=== PATIENT | male | born 1965 | race Asian ===

== ENCOUNTER 2017-03-27 14:59 | Emergency (ER) | payer BC ==
[2017-03-27 15:13] VITALS: BP 131/87
--- NOTE | 2017-03-27 16:24 | XRAY Preliminary Report ---
Exam: XR Knee 4 View LT IMPRESSION: Normal left knee radiography. [facility] SITE ID: [id number]
--- NOTE | 2017-03-27 16:26 | XRAY Report ---
EXAM: LEFT KNEE RADIOGRAPHY EXAM DATE: 03/27/2017 04:08 PM. CLINICAL HISTORY: Anterior left knee pain after twisting injury. COMPARISON: None. TECHNIQUE: 4 views. FINDINGS: Bones: Normal. No fractures or bone lesions. Joints: Normal. No effusion. No subluxations. Soft Tissues: Normal. No soft tissue swelling. IMPRESSION: Normal left knee radiography. [facility] Referring Provider Line: [phone] SITE ID: [id number]
--- NOTE | 2017-03-27 17:21 | ED Physician Documentation ---
History of Present Illness - Stated complaint Stated Complaint: GLF/ L KNEE PX - Chief complaint Chief Complaint: Ext Problem - Additonal information Additional information: hx from pt 51 male fell onto knee bowling pain to ant medial knee no lac numbness or weakness Review of Systems Musculoskeletal: reports: Joint pain PD PAST MEDICAL HISTORY - Past Medical History Past Medical History: Yes Cardiovascular: Hypertension - Past Surgical History Past Surgical History: Yes General: Cholecystectomy HEENT: Tonsil/Adenoidectomy - Present Medications Home Medications: Ambulatory Orders Medication Instructions Recorded Confirmed Atenolol [Tenormin] 50 mg PO BID 12/04/13 07/26/16 Losartan [Cozaar] 0 mg PO DAILY 12/04/13 07/26/16 - Allergies Allergies/Adverse Reactions: Allergies Allergy/AdvReac Type Severity Reaction Status Date / Time No Known Drug Allergies Allergy Verified 03/27/17 15:12 - Social History Does the pt smoke?: No Smoking Status: Never smoker Does the pt drink ETOH?: No Does the pt have substance abuse?: No - Immunizations Immunizations are current?: Yes - POLST Patient has POLST: No PD ED PE NORMAL - Vitals Vital signs reviewed: Yes - Extremities Extremities: Other (no edema, TTP medial anterior jt line, no ACL LCL MCL laxity , no pop catch with valerio, limited flexion 2/2 pain, MSV intact) Results - Vitals Vitals: Vital Signs - 24 hr 03/27/17 15:08 Temperature 37.0 C Heart Rate 58 L Respiratory 18 Rate Blood Pressure 131/87 H O2 Saturation 99 Oxygen O2 Source Room air - Rads (name of study) knee Radiology: See rad report (neg) Departure - Departure Disposition: 01 Home, Self Care Clinical Impression: Knee contusion Qualifiers: Encounter type: initial encounter Laterality: right Qualified Code(s): S80.01XA - Contusion of right knee, initial encounter Condition: Good Instructions: ED Sprain Knee Follow-Up: Noah Landaverde MD [Primary Care Provider] - Comments: The xray is fine - no fracture The pain is likely due to a knee sprain or contusion Wear the DANIAL wrap and apply ice and use the crutches to get the weight off the knee while it heals. If still painful in 1-2 weeks see your PMD for a recheck Also please follow up with your PMD to recheck your blood pressure - it was high today
[2017-03-27] MEDS ORDERED: IBUPROFEN 400 MG TABLET PO STA (17:25)
[2017-03-27] MEDS ORDERED: ACETAMINOPHEN 325 MG TABLET PO STA (17:25)
[2017-03-27] MEDS ORDERED: IBUPROFEN 400 MG TABLET PO ONE (17:28)
[2017-03-27] MEDS ORDERED: ACETAMINOPHEN 325 MG TABLET PO ONE (17:29)
== END 2017-03-27 17:33 | disposition home or self-care (01) ==
LOC: ED 14:59
DX: S80.02XA Contusion of left knee, initial encounter (principal); W18.30XA Fall on same level, unspecified, initial encounter; Y93.54 Activity, bowling; Y92.838 Other recreation area as the place of occurrence of the external cause; Y99.8 Other external cause status; I10 Essential (primary) hypertension; R03.0 Elevated blood-pressure reading, without diagnosis of hypertension
CPT/HCPCS: 73564; 99282; 99283; A9270

== ENCOUNTER 2017-07-05 14:04 | Outpatient (CLI) | payer BC ==
--- NOTE | 2017-07-05 15:31 | XRAY Report ---
FRONTAL CHEST: 07/05/2017 CLINICAL INDICATION: Nonspecific skin reaction to Gamma Interferon. COMPARISON: 07/26/2016. FINDINGS: Frontal view of the chest demonstrates a normal cardiac silhouette. The lungs are clear. N o effusion or pneumothorax is present. IMPRESSION: NORMAL CHEST, UNCHANGED. NO EVIDENCE OF ACTIVE TUBERCULOSIS. JOB #: [id number] EXT JOB #:[id number]
== END 2017-07-05 14:05 | disposition home or self-care (01) ==
LOC: DI 14:04
PROVIDERS: ATTEND Internal Medicine Infectious Disease
DX: R76.12 Nonspecific reaction to cell mediated immunity measurement of gamma interferon antigen response without active tuberculosis (principal)
CPT/HCPCS: 71010

== ENCOUNTER 2017-07-31 12:02 | Outpatient (CLI) | payer BC ==
--- NOTE | 2017-07-31 13:44 | MRI Report ---
EXAM: LEFT KNEE MRI WITHOUT CONTRAST EXAM DATE: 07/31/2017 01:06 PM. CLINICAL HISTORY: Fell while bowling on left knee. Lateral and posterior pain. COMPARISON: X-ray 03/27/2017. TECHNIQUE: Multiplanar, multisequence T1-weighted and fluid-sensitive sequences of the knee without c ontrast. Other: None. FINDINGS: Bones: No fractures or subluxations. No marrow edema. No bone lesions. Articular Cartilage: Grade 2 chondromalacia medial compartment. Grade 1 chondromalacia patella. Medial Meniscus: The medial meniscus is intact. Lateral Meniscus: The lateral meniscus is intact. Cruciate Ligaments: T2 hyperintensity and indistinct appearance of the PCL with mild laxity. ACL demo nstrates mild increased intrasubstance signal but is intact with no laxity. Collateral Ligaments: The medial collateral and lateral collateral ligamentous structures are intact. Tendons: The quadriceps, patellar, semimembranosus, and popliteus tendons are unremarkable. Musculature: No edema or fatty atrophy. Other: No effusion. No popliteal cyst. No loose bodies. The medial and lateral retinacula are intact . The subcutaneous tissues and fat pads are unremarkable. IMPRESSION: 1. High-grade partial PCL tear with mild laxity. 2. Partial-thickness ACL sprain but no laxity. [facility] Referring Provider Line: [phone] SITE ID: [id number]
== END 2017-07-31 12:03 | disposition home or self-care (01) ==
LOC: DI 12:02
PROVIDERS: ATTEND Family Medicine
DX: S83.522A Sprain of posterior cruciate ligament of left knee, initial encounter (principal); S83.512A Sprain of anterior cruciate ligament of left knee, initial encounter

== ENCOUNTER 2017-08-06 10:08 | Outpatient (CLI) | payer BC | END 2017-08-06 10:09 | disposition home or self-care (01) | LOC: LAB.WCP 10:08 | PROVIDERS: ATTEND Family Medicine | DX: Z12.5 Encounter for screening for malignant neoplasm of prostate (principal) | CPT/HCPCS: 36415; 84153 ==

== ENCOUNTER 2018-03-22 10:42 | Day surgery (SDC) | payer BC ==
[2018-03-22] MEDS ORDERED: LIDO GARGLE 30 ML BOTTLE ONE (11:06)
[2018-03-22] MEDS ORDERED: LACTATED RINGERS 1,000 ML IV ONE ×2 (11:30→13:24)
[2018-03-22] MEDS ORDERED: fentaNYL 250 MCG/5 ML VIAL IVP ONE (12:51)
[2018-03-22] MEDS ORDERED: MIDAZOLAM 2 MG/2 ML VIAL IVP ONE (12:51)
[2018-03-22] MEDS ORDERED: LIDO GARGLE 30 ML BOTTLE PO ONE (12:58)
[2018-03-22 14:18] VITALS: BP 100/61
== END 2018-03-22 10:43 | disposition home or self-care (01) ==
LOC: SDS 10:42
PROVIDERS: ATTEND Surgery
PROC: 0DBN8ZX Excision of Sigmoid Colon, Via Natural or Artificial Opening Endoscopic, Diagnostic (ICD-10-PCS; principal; 2018-03-22 12:00)
PROC: 0DB58ZX Excision of Esophagus, Via Natural or Artificial Opening Endoscopic, Diagnostic (ICD-10-PCS; 2018-03-22 12:00)
DX: Z12.11 Encounter for screening for malignant neoplasm of colon (principal); R10.13 Epigastric pain; K29.70 Gastritis, unspecified, without bleeding; K44.9 Diaphragmatic hernia without obstruction or gangrene; K63.5 Polyp of colon; K21.9 Gastro-esophageal reflux disease without esophagitis; J45.909 Unspecified asthma, uncomplicated; Z87.891 Personal history of nicotine dependence
CPT/HCPCS: 43239; 45380; A9270; J7120; 88305

== ENCOUNTER 2018-07-22 15:07 | Outpatient (CLI) | payer OTHER, BC ==
--- NOTE | 2018-07-23 14:07 | MRI Report ---
Reason: SPRAIN OF ROTATOR CUFF CAPSULE SUBSEQUENT ENC Procedure Date: 07/22/2018 Accession Number: [id number] / [id number] Procedure: MRI - Shoulder LT W/O CPT Code: FULL RESULT: EXAM: LEFT SHOULDER MRI WITHOUT CONTRAST EXAM DATE: 07/22/2018 04:16 PM. CLINICAL HISTORY: Sprain of rotator cuff capsule subsequent ENC. COMPARISON: SHOULDER 3 VIEW LT 05/02/2018 9:45 AM. TECHNIQUE: Multiplanar, multisequence T1-weighted and fluid-sensitive sequences of the shoulder without contrast. Other: None. FINDINGS: Acromioclavicular Region: The acromion is type II. The acromioclavicular joint is unremarkable. The coracoacromial and coracoclavicular ligaments are intact. No subacromial/subdeltoid bursal fluid. Glenohumeral Region: No subluxation. No effusion or loose bodies. Mild cartilage thinning. The glenohumeral ligaments and joint capsule are unremarkable. Bone Marrow: No fracture, marrow edema or bone lesions. Labrum: The labrum is unremarkable on this nonarthrographic study. Musculature/Rotator Cuff: Minimal T2 hyperintensity distal infraspinatus, tendinosis. The supraspinatus, subscapularis and teres minor appear intact and within normal limits. No edema or fatty atrophy. Biceps Tendon: The long head of the biceps tendon and biceps stacy are intact. Other: The subcutaneous tissues are unremarkable. IMPRESSION: 1. Mild tendinosis distal infraspinatus. 2. No significant evidence of rotator cuff tear. Labrum and biceps tendon unremarkable on noncontrast imaging. [facility]
== END 2018-07-22 15:08 | disposition home or self-care (01) ==
LOC: DI 15:07
PROVIDERS: ATTEND Family Medicine
DX: M75.92 Shoulder lesion, unspecified, left shoulder (principal)

== ENCOUNTER 2018-08-08 09:35 | Outpatient (CLI) | payer BC, OTHER ==
[2018-08-08 12:37] LABS: BASOPHILS # (AUTO) 0.1 10^3/uL (0.0-0.1); BASOPHILS % (AUTO) 1.3 %; EOSINOPHILS # (AUTO) 0.7 10^3/uL (0.0-0.7); EOSINOPHILS % (AUTO) 8.5 %; HGB - HEMOGLOBIN 15.4 g/dL (14.0-18.0); LYMPHOCYTES # (AUTO) 2.9 10^3/uL (1.5-3.5); LYMPHOCYTES % (AUTO) 33.4 %; MEAN CORPUSCULAR HGB CONC 34.5 g/dL (32.0-36.0); MEAN CORPUSCULAR VOLUME 89.8 fL (80.0-94.0); MEAN PLATELET VOLUME 9.1 fL (7.4-11.4); MONOCYTES # (AUTO) 0.7 10^3/uL (0.0-1.0); MONOCYTES % (AUTO) 7.9 %; NEUTROPHILS # (AUTO) 4.2 10^3/uL (1.5-6.6); NEUTROPHILS % (AUTO) 48.9 %; PLT - PLATELET COUNT 237 10^3/uL (130-450); RED BLOOD COUNT 4.98 10^6/uL (4.70-6.10); RED CELL DISTRIBUTION WIDTH 12.8 % (12.0-15.0); WHITE BLOOD COUNT 8.6 x10^3/uL (4.8-10.8)
[2018-08-08 12:39] LABS: HB2 TOTAL 17.1 g/dL; HEMOGLOBIN A1C 0.65 g/dL; HEMOGLOBIN A1C % 5.6 % (4.6-6.2)
[2018-08-08 12:46] LABS: ALBUMIN 4.2 g/dL (3.2-5.5); ALBUMIN/GLOBULIN RATIO 1.2 (1.0-2.2); ALKALINE PHOSPHATASE 87 IU/L (42-121); ALT ALANINE AMINOTRANSFERASE 48 IU/L (10-60); AST ASPARTATE AMINOTRANSFERASE 30 IU/L (10-42); BILIRUBIN,TOTAL 0.6 mg/dL (0.2-1.0); BUN - BLOOD UREA NITROGEN 19 mg/dL (6-20); CALCIUM 9.1 mg/dL (8.5-10.3); CARBON DIOXIDE - CO2 24 mmol/L (21-32); CHLORIDE 107 mmol/L (101-111); CHOL/HDL RATIO 6.5 (<5.0); CHOLESTEROL 175 mg/dL; CREATININE 0.9 mg/dL (0.6-1.2); GFR - MDRD 88 (>89); GLUCOSE 123 mg/dL (70-100); HDL CHOLESTEROL 27 mg/dL; LDL CHOLESTEROL,CALCULATED 95 mg/dL; LDL/HDL RATIO 3.5 (<3.6); SODIUM 141 mmol/L (135-145); TOTAL PROTEIN 7.6 g/dL (6.7-8.2); VLDL CHOLESTEROL 53 mg/dL
== END 2018-08-08 09:36 | disposition home or self-care (01) ==
LOC: LAB.WCP 09:35
PROVIDERS: ATTEND Family Medicine
DX: I10 Essential (primary) hypertension (principal); E74.39 Other disorders of intestinal carbohydrate absorption; Z12.5 Encounter for screening for malignant neoplasm of prostate
CPT/HCPCS: 36415; 80053; 80061; 83036; 83721; 84153; 85025

== ENCOUNTER 2019-02-12 17:10 | Emergency (ER) | payer BC ==
--- NOTE | 2019-02-12 19:19 | XRAY Report ---
Reason: cough Procedure Date: 02/12/2019 Accession Number: [id number] / [id number] Procedure: XR - Chest 2 View X-Ray CPT Code: 58245 FULL RESULT: EXAM: CHEST RADIOGRAPHY EXAM DATE: 02/12/2019 06:55 PM. CLINICAL HISTORY: Cough. COMPARISON: CHEST 1 VIEW 07/05/2017 2:30 PM. TECHNIQUE: 2 views. FINDINGS: Lungs/Pleura: No focal opacities evident. No pleural effusion. No pneumothorax. Normal volumes. Mediastinum: Heart size is normal. Aorta is mildly tortuous. Other: Degenerative changes of the thoracic spine. Status post cholecystectomy. IMPRESSION: 1. No acute disease in the chest. [facility]
[2019-02-12] MEDS ORDERED: AMOX/CLAV 875 MG/125 MG TABLET PO STA (19:33)
[2019-02-12] MEDS ORDERED: predniSONE 20 MG TABLET PO STA (19:33)
[2019-02-12] MEDS ORDERED: HYDROcod/ACET 5/325 Prepack 4 PO STA (19:33)
--- NOTE | 2019-02-12 19:36 | ED Physician Documentation ---
History of Present Illness - Stated complaint Stated Complaint: DAIGLE,FEVER,COUGH - Chief complaint Chief Complaint: General - History obtained from History obtained from: Patient - History of Present Illness Timing: Other (53-year-old gentleman has been sick for about a week with frontal headache, sinus pain and drainage, and a cough productive of white sputum. Mild shortness of breath. No fevers or chills. He is tried Mucinex and Tylenol without relief. No recent travel.) Review of Systems Constitutional: reports: Fatigue. denies: Fever, Chills Ears: reports: Ear pain Nose: reports: Rhinorrhea / runny nose, Congestion, Sinus pressure / pain Throat: denies: Sore throat Respiratory: reports: Cough GI: denies: Vomiting, Diarrhea PD PAST MEDICAL HISTORY - Past Medical History Cardiovascular: Hypertension Respiratory: Asthma, Sleep apnea, CPAP use Endocrine/Autoimmune: None GI: GERD, Colon polyps : Kidney stones HEENT: Chronic vision loss, Glaucoma Psych: None Musculoskeletal: None Derm: None - Past Surgical History Past Surgical History: Yes General: Cholecystectomy, Colonoscopy HEENT: Tonsil/Adenoidectomy, Other - Present Medications Home Medications: Ambulatory Orders Medication Instructions Recorded Confirmed Atenolol [Tenormin] 50 mg PO BID 12/04/13 07/26/16 Losartan [Cozaar] 0 mg PO BID 12/04/13 07/26/16 amLODIPine [Norvasc] 1 DAILY 03/22/18 Amox/Clav 875/125 [Augmentin] 1 each PO Q12H #20 tablet 02/12/19 Hydrocodone/Acetaminophen 1 - 2 each PO Q6H PRN #7 tablet 02/12/19 [Hydrocodon-Acetaminophen 5-325] Mometasone Furoate [Nasonex] 1 spray NS BID #1 spray.pump 02/12/19 predniSONE [Deltasone] 60 mg PO DAILY 5 Days tablet 02/12/19 - Allergies Allergies/Adverse Reactions: Allergies Allergy/AdvReac Type Severity Reaction Status Date / Time No Known Drug Allergies Allergy Verified 03/27/17 15:12 - Social History Does the pt smoke?: No Smoking Status: Never smoker Does the pt drink ETOH?: No Does the pt have substance abuse?: No - Immunizations Immunizations are current?: Yes - POLST Patient has POLST: No PD ED PE NORMAL - Vitals Vital signs reviewed: Yes - General General: Alert and oriented X 3, No acute distress - HEENT HEENT: Ears normal (TMs are normal), Pharynx benign, Other (Tender over the maxillary sinuses bilaterally) - Neck Neck: Supple, no meningeal sign, No bony TTP - Cardiac Cardiac: RRR, No murmur - Respiratory Respiratory: No respiratory distress, Clear bilaterally - Abdomen Abdomen: Non tender - Neuro Neuro: Alert and oriented X 3, Normal speech Results - Vitals Vitals: Vital Signs - 24 hr 02/12/19 17:30 Temperature 37.2 C Heart Rate 72 Respiratory 14 Rate Blood Pressure 125/79 O2 Saturation 98 Oxygen O2 Source Room air - Rads (name of study) 2v chest Radiology: EMP read contemporaneously (normal) Departure - Departure Disposition: Home, Self Care Clinical Impression: Sinusitis Qualifiers: Sinusitis location: maxillary Chronicity: acute Recurrence: non-recurrent Qualified Code(s): J01.00 - Acute maxillary sinusitis, unspecified Condition: Good Record reviewed to determine appropriate education?: Yes Instructions: ED Sinusitis Abx Tx Prescriptions: Amox/Clav 875/125 [Augmentin] 1 each PO Q12H #20 tablet Hydrocodone/Acetaminophen [Hydrocodon-Acetaminophen 5-325] 1 - 2 each PO Q6H PRN #7 tablet PRN Reason: pain Mometasone Furoate [Nasonex] 1 spray NS BID #1 spray.pump predniSONE [Deltasone] 60 mg PO DAILY 5 Days tablet Comments: Call your doctor to arrange a follow-up appointment, make the next available appointment. In the interim, return anytime if worse or if new symptoms develop. Forms: Activity restrictions
[2019-02-12 19:53] VITALS: BP 140/84
== END 2019-02-12 20:16 | disposition home or self-care (01) ==
LOC: ED 17:10
DX: J01.00 Acute maxillary sinusitis, unspecified (principal)
CPT/HCPCS: 71046; 99283; A9270; J7512

== ENCOUNTER 2019-03-13 09:29 | Outpatient (CLI) | payer BC ==
[2019-03-13 12:44] LABS: BASOPHILS # (AUTO) 0.1 10^3/uL (0.0-0.1); BASOPHILS % (AUTO) 1.1 %; EOSINOPHILS # (AUTO) 0.5 10^3/uL (0.0-0.7); EOSINOPHILS % (AUTO) 7.5 %; LYMPHOCYTES # (AUTO) 2.5 10^3/uL (1.5-3.5); LYMPHOCYTES % (AUTO) 35.8 %; MEAN CORPUSCULAR HEMOGLOBIN 30.4 pg (27.0-31.0); MEAN CORPUSCULAR VOLUME 89.2 fL (80.0-94.0); MEAN PLATELET VOLUME 8.9 fL (7.4-11.4); MONOCYTES # (AUTO) 0.6 10^3/uL (0.0-1.0); MONOCYTES % (AUTO) 7.9 %; NEUTROPHILS # (AUTO) 3.4 10^3/uL (1.5-6.6); NEUTROPHILS % (AUTO) 47.7 %; PLT - PLATELET COUNT 228 10^3/uL (130-450); RED BLOOD COUNT 4.94 10^6/uL (4.70-6.10); RED CELL DISTRIBUTION WIDTH 12.5 % (12.0-15.0); WHITE BLOOD COUNT 7.1 x10^3/uL (4.8-10.8)
[2019-03-13 12:57] LABS: HEMOGLOBIN A1C 0.65 g/dL; HEMOGLOBIN A1C % 5.9 % (4.6-6.2)
[2019-03-13 13:09] LABS: ALBUMIN/GLOBULIN RATIO 1.2 (1.0-2.2); ALKALINE PHOSPHATASE 68 IU/L (42-121); ALT ALANINE AMINOTRANSFERASE 30 IU/L (10-60); AST ASPARTATE AMINOTRANSFERASE 23 IU/L (10-42); BILIRUBIN,TOTAL 0.5 mg/dL (0.2-1.0); BUN - BLOOD UREA NITROGEN 17 mg/dL (6-20); CARBON DIOXIDE - CO2 23 mmol/L (21-32); CHLORIDE 107 mmol/L (101-111); CHOL/HDL RATIO 5.8 (<5.0); CHOLESTEROL 150 mg/dL; CREATININE 0.9 mg/dL (0.6-1.2); GFR - MDRD 88 (>89); GLUCOSE 111 mg/dL (70-100); HDL CHOLESTEROL 26 mg/dL; LDL CHOLESTEROL,CALCULATED 86 mg/dL; LDL/HDL RATIO 3.3 (<3.6); SODIUM 139 mmol/L (135-145); TOTAL PROTEIN 7.4 g/dL (6.7-8.2); VLDL CHOLESTEROL 38 mg/dL
== END 2019-03-13 09:30 | disposition home or self-care (01) ==
LOC: LAB.WCP 09:29
PROVIDERS: ATTEND Family Medicine
DX: I10 Essential (primary) hypertension (principal); E74.39 Other disorders of intestinal carbohydrate absorption
CPT/HCPCS: 36415; 80053; 80061; 83036; 83721; 85025

== ENCOUNTER 2019-03-18 08:02 | Outpatient (CLI) | payer BC | END 2019-03-18 08:03 | disposition home or self-care (01) | LOC: DI 08:02 | PROVIDERS: ATTEND Family Medicine | DX: R01.1 Cardiac murmur, unspecified (principal); I51.7 Cardiomegaly | CPT/HCPCS: 93306 ==

== ENCOUNTER 2019-04-11 07:31 | Day surgery (SDC) | payer BC ==
[2019-04-11] MEDS ORDERED: LACTATED RINGERS 1,000 ML IV ONE (07:51)
--- NOTE | 2019-04-11 08:01 | ANESTHESIA ---
Pre-Anesthesia VS, & Labs - Diagnosis Mass right thumb - Procedure Excise right thumb mass Vital Signs: Temp Pulse Resp BP Pulse Ox 36.8 C 51 L 15 128/90 H 98 04/11/19 07:35 04/11/19 07:35 04/11/19 07:35 04/11/19 07:35 04/11/19 07:35 Height 5 ft 6 in Weight (kg) 83.6 kg Body Mass Index 30.2 - NPO >8 hours Home Medications and Allergies Home Medications: Ambulatory Orders Acetaminophen [Tylenol] 650 mg PO Q6H PRN 04/06/19 Albuterol Sulf [Ventolin Hfa Inhaler] 2 puffs INH Q4HR PRN 04/06/19 Cetirizine [ZyrTEC] 10 mg PO DAILY 04/06/19 Fluticasone Propionate [Flovent Hfa] 2 inh IH BID 04/06/19 Fluticasone [Flonase] 1 sprays SHAHIDA BID 04/06/19 Atenolol [Tenormin] 50 mg PO BID 12/04/13 Losartan [Cozaar] 50 mg PO BID 12/04/13 amLODIPine [Norvasc] 5 mg PO DAILY 03/22/18 Acetaminophen [Tylenol] 650 mg PO Q6H PRN 04/06/19 Albuterol Sulf [Ventolin Hfa Inhaler] 2 puffs INH Q4HR PRN 04/06/19 Cetirizine [ZyrTEC] 10 mg PO DAILY 04/06/19 Fluticasone Propionate [Flovent Hfa] 2 inh IH BID 04/06/19 Fluticasone [Flonase] 1 sprays SHAHIDA BID 04/06/19 Allergies/Adverse Reactions: Allergies Allergy/AdvReac Type Severity Reaction Status Date / Time DANIAL Inhibitors AdvReac cough Verified 04/06/19 10:55 Anes History & Medical History - Anesthetic History Anesthesia Complications: reports: No previous complications Family history of Anesthesia Complications: Denies Family history of Malignant Hyperthermia: Denies - Medical History Cardiovascular: reports: Hypertension, Murmur Pulmonary: reports: Asthma, Sleep apnea Gastrointestinal: reports: GERD Urinary: reports: Kidney stones Neuro: reports: None Musculoskeletal: reports: None Endocrine/Autoimmune: reports: None Blood Disorders: reports: None Skin: reports: None Smoking Status: Never smoker Psychosocial: reports: No issues indicated - Surgical History General: Cholecystectomy, Colonoscopy Eyes Ears Nose Throat (EENT): Tonsil/Adenoidectomy, Other Exam General: Alert, Oriented x3 Dental: Dentures full Upper Mouth Openin Fingerbreadth Neck Mobility: Normal Mallampati classification: II Thyromental Distance: greater than 6 cm Respiratory: Lungs clear Cardiovascular: Regular rate Neurological: Normal speech Mental/Cognitive Status: Alert/Oriented X3 Cognitive Status: Within normal limits Plan Anesthesia Type: MAC Consent for Procedure(s) Verified and Reviewed: Yes Code Status: Attempt Resuscitation ASA classification: 2-Mild systemic disease Is this case an emergency?: No
[2019-04-11] MEDS ORDERED: BUPIVACAINE 0.5% PF 10 ML VIAL ONE (08:18)
[2019-04-11] MEDS ORDERED: LIDOCAINE-MPF 2% 5 ML VIAL IM ONE (08:30)
[2019-04-11] MEDS ORDERED: PROPOFOL 200 MG/20 ML VIAL IVP ONE (08:30)
[2019-04-11] MEDS ORDERED: MIDAZOLAM 2 MG/2 ML VIAL IVP ONE (08:30)
[2019-04-11] MEDS ORDERED: fentaNYL 100 MCG/2 ML VIAL IVP ONE (08:30)
[2019-04-11] MEDS ORDERED: BUPIVACAINE 0.25% PF 30 ML VIAL SUBQ ONE ×2 (08:36)
[2019-04-11] MEDS ORDERED: HYDROcod/ACETAM 5/325 MG TABLET PO PRN (08:59)
[2019-04-11 09:51] VITALS: BP 128/90
--- NOTE | 2019-04-11 18:12 | OPERATIVE REPORT ---
DATE OF SERVICE: 04/11/2019 Physician: Sylvia Zavala MD PREOPERATIVE DIAGNOSIS: Ganglion cyst, right dorsal thumb. POSTOPERATIVE DIAGNOSIS: Ganglion cyst, right dorsal thumb. PROCEDURE PERFORMED: Excision of right dorsal thumb ganglion cyst. SURGEON: Sylvia Zavala MD ANESTHESIA: Local with conscious sedation by Carloz Luis. INDICATIONS FOR SURGERY: Patient is a 53-year-old male who has an intermittent formation of a gangli on on the dorsal radial aspect of the thumb at the IP joint level. This cystic lesion has become bot hersome and he would like it excised. He does not have any aggressive arthritis changes on x-ray. DESCRIPTION OF OPERATIVE PROCEDURE: Patient was taken to the operating room. He was given conscious sedation and IV infiltration, including a block in and around the tissues in the thumb. Patient's l imb was exsanguinated and a Tourni-Cot device was used at the base of the thumb. His lesion was appr oached through a slightly oblique incision across the dorsum approximately one-half inch in length an d extended slightly to allow mobilization of the ganglion down into the joint itself, and excision of the ganglion. This was taken in total and the surrounding tissues were inspected, and there was no ganglion or lining tissue left. Cautery was used to control small bleeders. Closure was with interr upted 4-0 nylon in the skin, after which a sterile thumb dressing was applied. Patient was taken to the recovery room in stable condition. ESTIMATED BLOOD LOSS: Minimal. COMPLICATIONS: None. COUNTS: Sponge and needle counts correct. TD: 04/11/2019 15:31
== END 2019-04-11 07:32 | disposition home or self-care (01) ==
LOC: SDS 07:31
PROVIDERS: ATTEND Orthopaedic Surgery
PROC: 0RBW0ZZ Excision of Right Finger Phalangeal Joint, Open Approach (ICD-10-PCS; principal; 2019-04-11 08:30)
DX: M67.441 Ganglion, right hand (principal); I10 Essential (primary) hypertension; G47.30 Sleep apnea, unspecified; J45.909 Unspecified asthma, uncomplicated; Z79.51 Long term (current) use of inhaled steroids; Z79.899 Other long term (current) drug therapy
CPT/HCPCS: 26160; J7120

== ENCOUNTER 2020-01-26 18:41 | Outpatient (CLI) | payer BC ==
[2020-01-26 12:15] LABS: ALBUMIN 4.1 g/dL (3.2-5.5); ALBUMIN/GLOBULIN RATIO 1.2 (1.0-2.2); ALKALINE PHOSPHATASE 66 IU/L (42-121); ALT ALANINE AMINOTRANSFERASE 36 IU/L (10-60); AST ASPARTATE AMINOTRANSFERASE 25 IU/L (10-42); BILIRUBIN,TOTAL 0.8 mg/dL (0.2-1.0); BUN - BLOOD UREA NITROGEN 15 mg/dL (6-20); CARBON DIOXIDE - CO2 25 mmol/L (21-32); CHLORIDE 106 mmol/L (101-111); CHOLESTEROL 167 mg/dL; CREATININE 0.9 mg/dL (0.6-1.2); GLUCOSE 112 mg/dL (70-100); HDL CHOLESTEROL 28 mg/dL; LDL CHOLESTEROL,CALCULATED 94 mg/dL; LDL/HDL RATIO 3.4 (<3.6); SODIUM 139 mmol/L (135-145); TOTAL PROTEIN 7.6 g/dL (6.7-8.2); VLDL CHOLESTEROL 45 mg/dL
[2020-01-26 12:17] LABS: HB2 TOTAL 15.9 g/dL; HEMOGLOBIN A1C 0.64 g/dL; HEMOGLOBIN A1C % 5.8 % (4.6-6.2)
[2020-01-26 12:20] LABS: BASOPHILS # (AUTO) 0.1 10^3/uL (0.0-0.1); BASOPHILS % (AUTO) 0.9 %; EOSINOPHILS # (AUTO) 0.6 10^3/uL (0.0-0.7); EOSINOPHILS % (AUTO) 8.9 %; HGB - HEMOGLOBIN 15.7 g/dL (14.0-18.0); LYMPHOCYTES # (AUTO) 2.8 10^3/uL (1.5-3.5); LYMPHOCYTES % (AUTO) 40.3 %; MEAN CORPUSCULAR HGB CONC 33.9 g/dL (32.0-36.0); MEAN CORPUSCULAR VOLUME 91.5 fL (80.0-94.0); MEAN PLATELET VOLUME 10.8 fL (7.4-11.4); MONOCYTES # (AUTO) 0.5 10^3/uL (0.0-1.0); MONOCYTES % (AUTO) 7.6 %; NEUTROPHILS # (AUTO) 2.9 10^3/uL (1.5-6.6); NEUTROPHILS % (AUTO) 41.7 %; PLT - PLATELET COUNT 253 10^3/uL (130-450); RED BLOOD COUNT 5.06 10^6/uL (4.70-6.10); RED CELL DISTRIBUTION WIDTH 12.2 % (12.0-15.0)
[2020-01-27 14:50] LABS: HEPATITIS C ANTIBODY NON-REACTIVE (NON-REACTIVE)
== END 2020-01-26 23:59 | disposition home or self-care (01) ==
LOC: LAB.WCP 18:41
PROVIDERS: ATTEND Family Medicine
DX: I10 Essential (primary) hypertension (principal); Z12.5 Encounter for screening for malignant neoplasm of prostate; E74.39 Other disorders of intestinal carbohydrate absorption
CPT/HCPCS: 36415; 80053; 80061; 83036; 83721; 84153; 85025; 86803

== ENCOUNTER 2021-03-17 08:00 | Outpatient (CLI) | payer BC ==
[2021-03-17 12:27] LABS: BASOPHILS # (AUTO) 0.1 10^3/uL (0.0-0.1); BASOPHILS % (AUTO) 1.1 %; EOSINOPHILS # (AUTO) 0.7 10^3/uL (0.0-0.7); EOSINOPHILS % (AUTO) 8.5 %; HCT - HEMATOCRIT 46.3 % (42.0-52.0); HGB - HEMOGLOBIN 15.1 g/dL (14.0-18.0); LYMPHOCYTES # (AUTO) 3.2 10^3/uL (1.5-3.5); LYMPHOCYTES % (AUTO) 38.1 %; MEAN CORPUSCULAR HEMOGLOBIN 30.1 pg (27.0-31.0); MEAN CORPUSCULAR HGB CONC 32.6 g/dL (32.0-36.0); MEAN CORPUSCULAR VOLUME 92.4 fL (80.0-94.0); MEAN PLATELET VOLUME 10.8 fL (7.4-11.4); MONOCYTES # (AUTO) 0.6 10^3/uL (0.0-1.0); MONOCYTES % (AUTO) 6.7 %; NEUTROPHILS # (AUTO) 3.8 10^3/uL (1.5-6.6); NEUTROPHILS % (AUTO) 45.2 %; PLT - PLATELET COUNT 242 10^3/uL (130-450); RED BLOOD COUNT 5.01 10^6/uL (4.70-6.10); WHITE BLOOD COUNT 8.3 x10^3/uL (4.8-10.8)
[2021-03-17 12:49] LABS: ESTIMATED AVERAGE GLUCOSE 114 mg/dL (70-100); HEMOGLOBIN A1c% 5.6 % (4.27-6.07)
[2021-03-17 13:02] LABS: ALBUMIN 4.1 g/dL (3.2-5.5); ALBUMIN/GLOBULIN RATIO 1.4 (1.0-2.2); ALKALINE PHOSPHATASE 61 IU/L (42-121); ALT ALANINE AMINOTRANSFERASE 32 IU/L (10-60); AST ASPARTATE AMINOTRANSFERASE 22 IU/L (10-42); BILIRUBIN,TOTAL 0.6 mg/dL (0.2-1.0); BUN - BLOOD UREA NITROGEN 22 mg/dL (6-20); CALCIUM 9.1 mg/dL (8.5-10.3); CARBON DIOXIDE - CO2 27 mmol/L (21-32); CHLORIDE 106 mmol/L (101-111); CHOLESTEROL 155 mg/dL; CREATININE 0.9 mg/dL (0.6-1.2); GFR - MDRD 87 (>89); GLUCOSE 116 mg/dL (70-100); HDL CHOLESTEROL 26 mg/dL; LDL CHOLESTEROL,CALCULATED 80 mg/dL; LDL/HDL RATIO 3.1 (<3.6); POTASSIUM 4.3 mmol/L (3.5-5.0); SODIUM 142 mmol/L (135-145); TOTAL PROTEIN 7.1 g/dL (6.7-8.2); TRIGLYCERIDES 246 mg/dL; VLDL CHOLESTEROL 49 mg/dL
== END 2021-03-17 23:59 | disposition home or self-care (01) ==
LOC: LAB.WCP 08:00
PROVIDERS: ATTEND Family Medicine
DX: E74.39 Other disorders of intestinal carbohydrate absorption (principal); I10 Essential (primary) hypertension; Z12.5 Encounter for screening for malignant neoplasm of prostate
CPT/HCPCS: 36415; 80053; 80061; 83036; 83721; 84153; 85025

== ENCOUNTER 2022-09-09 10:10 | Outpatient (CLI) | payer BC ==
--- NOTE | 2022-09-09 16:36 | Ultrasound Report ---
PROCEDURE: Head or Neck Soft Tissue INDICATIONS: ENLARGED THYROID TECHNIQUE: Real-time scanning was performed of the thyroid gland, with image documentation. COMPARISON: None FINDINGS: Right: Thyroid lobe measures 4.7 x 2.4 x 3.2 cm, and is homogeneous in echotexture. Left: Thyroid lobe measures 4.7 x 2.0 x 2.1 cm, and is homogenous in echotexture. Isthmus: 4 mm thick. Nodule number: One Location: Right Size: 3.3 x 2.0 x 2.4 cm. Composition: Solid Echogenicity: Heterogeneous, mildly hypoechoic, some portions are not evaluated due to shadow. Shape: wider than tall. Margins: Lobulated Echogenic foci: Macrocalcifications within the mass shadows the deep portion of the mass. Total points: 7 ACR TI-RADS category: 5 Nodule number: Two Location: Left superior pole Size: 0.5 x 0.4 x 0.5 cm. Composition: Solid Echogenicity: Hypoechoic Shape: wider than tall. Margins: Indistinct Echogenic foci: No Total points: 4 ACR TI-RADS category: 4 Nodule number: Three Location: Left inferior pole Size: 0.9 x 0.8 x 1.1 cm. Composition: Solid Echogenicity: Hypoechoic Shape: wider than tall. Margins: Indistinct Echogenic foci: No Total points: 4 ACR TI-RADS category: 4 There are a few mildly prominent right lateral compartment cervical chain lymph nodes with loss of fa tty [place]. A smaller, similar-appearing left cervical chain lymph nodes are present. IMPRESSION: 1. Highly suspicious right thyroid mass which FNA is recommended. 2. Borderline right cervical chain adenopathy. 3. Moderately suspicious mainly subcentimeter left thyroid nodules. Follow-up recommended. ACR TI-RADS definitions and recommendations: TI-RADS 1 (benign): 0 points. FNA not needed. TI-RADS 2 (not suspicious): 2 points. FNA not needed. TI-RADS 3 (mildly suspicious): 3 points. "FNA if 2.5 cm or larger, follow up if 1.5 cm or larger (at 1, 3, and 5 years). TI-RADS 4 (moderately suspicious): 4-6 points. "FNA if 1.5 cm or larger, follow up if 1 cm or larger (at 1, 2, 3, and 5 years). TI-RADS 5 (highly suspicious): 7 points or more. "FNA if 1 cm or larger, follow up if 0.5 cm or larger (every year for 5 years). Reviewed by: Sharifa Ragland MD on 09/09/2022 4:35 PM PST Approved by: Sharifa Ragland MD on 09/09/2022 4:35 PM PST Station ID: [id number]
== END 2022-09-09 10:11 | disposition home or self-care (01) ==
LOC: DI 10:10
PROVIDERS: ATTEND Nurse Practitioner Family
DX: E07.89 Other specified disorders of thyroid (principal); R59.0 Localized enlarged lymph nodes; E04.2 Nontoxic multinodular goiter

== ENCOUNTER 2022-10-06 10:03 | Outpatient (CLI) | payer BC ==
[~2022-10-06 10:03] MED LIST: LIDOCAINE-MPF 1% 5 ML VIAL ONE
[2022-10-06] MEDS ORDERED: LIDOCAINE-MPF 1% 5 ML VIAL TD ONE (10:48)
--- NOTE | 2022-10-06 16:29 | Ultrasound Report ---
PROCEDURE: FNA Bx w/US Gdn 1st Les INDICATIONS: THYROID NODULE TECHNIQUE: The indications, alternatives, benefits, risks, and complications of the procedure were explained to the patient. Written informed consent was obtained and placed in the chart. The area of interest wa s examined sonographically and a site was chosen for ultrasound guided percutaneous sampling. The sk in was prepared and draped in the usual fashion, and anesthetized with 1% lidocaine infiltrated from the skin down to the lesion. Multiple passes were then performed, with contents emptied into an [facility] specimen container. A bandage was applied to the area of access at completion of t he study. COMPARISON: None. FINDINGS: Location(s) of lesion(s) sampled: Right thyroid lobe nodule [place]: 25 gauge hypodermic needles. Number of passes: Five Medications: 1% lidocaine for local anaesthesia. Complications: None. IMPRESSION: Successful ultrasound-guided right thyroid lobe nodule fine needle aspiration, with cytology results pending. Reviewed by: Jose Francisco Mitchell MD on 10/06/2022 4:27 PM PST Approved by: Jose Francisco Mitchell MD on 10/06/2022 4:27 PM PST Station ID: [id number]
== END 2022-10-06 10:04 | disposition home or self-care (01) ==
LOC: DI 10:03
PROVIDERS: ATTEND Nurse Practitioner Family
DX: E04.1 Nontoxic single thyroid nodule (principal); E04.9 Nontoxic goiter, unspecified
CPT/HCPCS: 10005

== ENCOUNTER 2022-12-23 20:58 | Emergency (ER) | payer BC ==
--- OUTSIDE RECORDS SUMMARY | 2022-12-23 21:07 | EXTERNAL MEDICAL SUMMARY RPT | Continuity of Care Document ---
:1965 Author Organization [facility] Address [address] [place] [address] Phone Allergies No information. Encounters No information. Functional Status No information. Immunizations No information. Medications No information. Problems date description facility 2022-11-02 11:09 Nontoxic single thyroid nodule [facility] 2022-11-02 11:09 Nontoxic goiter, unspecified [facility] spital Procedures No information. Results/Labs test date author facility value unit interpret ation Result panel 1 (unknown) (no (unknown) (unknown) (no value) (units (unk nown) date) unknown) (unknown) (no (unknown) (unknown) [id number] (units (unkno wn) date) unknown) (unknown) (no (unknown) (unknown) 11/02/22 (units (unkno wn) date) unknown) (unknown) (no (unknown) (unknown) [address] [place] [address] (units (unknown) date) unknown) (unknown) (no (unknown) (unknown) Accession (units (unkn own) date) Number: unknown) [id number] (unknown) (no (unknown) (unknown) After the (units (unkn own) date) administration of unknown) intravenous contrast, 3.0 mm axial sections (unknown) (no (unknown) (unknown) Age/Sex: 57 / M (units (unknown) date) Date of Service: unknown) (unknown) (no (unknown) (unknown) [place], [place] (units ( unknown) date) [id number] unknown) (unknown) (no (unknown) (unknown) Approved by: (units (u nknown) date) sea Dias M.D. on 11/02/2022 at 16:39 (unknown) (no (unknown) (unknown) Bones: No (units (unkn own) date) suspicious bony unknown) lesions. Visualized sinuses and mastoids appear (unknown) (no (unknown) (unknown) COMPARISON: (units (un known) date) None. unknown) (unknown) (no (unknown) (unknown) CT Scan Report (units (unknown) date) unknown) (unknown) (no (unknown) (unknown) : 1965 (units (unknown) date) Acct:[id number] unknown) (unknown) (no (unknown) (unknown) Dictated by: (units (u nknown) date) Amanda Pinzon unknownLeslie Stanley on 11/02/2022 at 16:38 (unknown) (no (unknown) (unknown) Enlargement with (units (unknown) date) heterogeneous unknown) enhancement as well as calcification in the (unknown) (no (unknown) (unknown) FINDINGS: (units (unkn own) date) unknown) (unknown) (no (unknown) (unknown) Glands: The (units (un known) date) parotid and unknown) submandibular glands appear normal. Thyroid gland (unknown) (no (unknown) (unknown) IMPRESSION: (units (un known) date) unknown) (unknown) (no (unknown) (unknown) INDICATIONS: (units (u nknown) date) Nontoxic single unknown) thyroid nodule (unknown) (no (unknown) (unknown) Image quality: (units (unknown) date) Excellent. unknown) (unknown) (no (unknown) (unknown) [facility] (units (unknown) date) unknown) (unknown) (no (unknown) (unknown) Loc: CT (units (unkno wn) date) unknown) (unknown) (no (unknown) (unknown) Lymph nodes: No (units (unknown) date) enlarged lymph unknown) nodes seen throughout the neck. (unknown) (no (unknown) (unknown) Miscellaneous: (units (unknown) date) Visualized brain unknown) and orbits appear normal. Lung apices appear (unknown) (no (unknown) (unknown) Neck spaces: The (units (unknown) date) oropharynx, unknown) nasopharynx, and pharynx demonstrate no mucosal (unknown) (no (unknown) (unknown) Ordering (units (unkno wn) date) Provider: unknown) Robinson Horowitz MD (unknown) (no (unknown) (unknown) PROCEDURE: CT (units ( unknown) date) SOFT TISSUE NECK unknown) W CON (unknown) (no (unknown) (unknown) Patient: (units (unkno wn) date) Jacob Silva unknown) MR#: [id number] (unknown) (no (unknown) (unknown) Procedure: CT (units ( unknown) date) soft tissue neck unknown) w con (unknown) (no (unknown) (unknown) Signed (units (unkno wn) date) unknown) (unknown) (no (unknown) (unknown) Superficial soft (units (unknown) date) tissues appear unknown) normal. (unknown) (no (unknown) (unknown) TECHNIQUE: (units (unk nown) date) unknown) (unknown) (no (unknown) (unknown) The vocal cords, (units (unknown) date) false vocal unknown) cords, pyriform sinuses, epiglottis, vallecula, (unknown) (no (unknown) (unknown) Vessels: (units (unkno wn) date) Visualized unknown) vasculature appears patent. (unknown) (no (unknown) (unknown) acquired from (units ( unknown) date) the unknown) (unknown) (no (unknown) (unknown) and tongue (units (unk nown) date) unknown) (unknown) (no (unknown) (unknown) base all appear (units (unknown) date) normal. unknown) Extramucosal spaces appear unremarkable. (unknown) (no (unknown) (unknown) calcification.. (units (unknown) date) unknown) (unknown) (no (unknown) (unknown) clear. (units (unkno wn) date) unknown) (unknown) (no (unknown) (unknown) demonstrates (units (u nknown) date) unknown) (unknown) (no (unknown) (unknown) enlargement of (units (unknown) date) the right lobe unknown) with areas of heterogeneous low attenuation as (unknown) (no (unknown) (unknown) lesions. (units (unkno wn) date) unknown) (unknown) (no (unknown) (unknown) lobe. Findings (units (unknown) date) on current exam unknown) are overall nonspecific. Further evaluation (unknown) (no (unknown) (unknown) pharynx. 3 mm (units ( unknown) date) thick coronal and unknown) sagittal reformats were generated. For (unknown) (no (unknown) (unknown) radiation dose (units (unknown) date) unknown) (unknown) (no (unknown) (unknown) reduction, the (units (unknown) date) following was unknown) used: automated exposure control. (unknown) (no (unknown) (unknown) right thyroid (units ( unknown) date) unknown) (unknown) (no (unknown) (unknown) sella to the (units (u nknown) date) aortic arch. unknown) Additional oblique axial 3.0 mm sections acquired (unknown) (no (unknown) (unknown) through the (units (un known) date) unknown) (unknown) (no (unknown) (unknown) ultrasound (units (unk nown) date) and/or FNA is unknown) recommended as clinically indicated. (unknown) (no (unknown) (unknown) unremarkable. (units ( unknown) date) unknown) (unknown) (no (unknown) (unknown) well as (units (unkno wn) date) unknown) (unknown) (no (unknown) (unknown) with thyroid (units (u nknown) date) unknown) Social History No information. Vital Signs No information.
[2022-12-23 21:37] LABS: BASOPHILS # (AUTO) 0.1 10^3/uL (0.0-0.1); BASOPHILS % (AUTO) 0.8 %; EOSINOPHILS # (AUTO) 0.5 10^3/uL (0.0-0.7); EOSINOPHILS % (AUTO) 6.4 %; HGB - HEMOGLOBIN 15.9 g/dL (14.0-18.0); LYMPHOCYTES # (AUTO) 3.3 10^3/uL (1.5-3.5); LYMPHOCYTES % (AUTO) 40.1 %; MEAN CORPUSCULAR HEMOGLOBIN 30.9 pg (27.0-31.0); MEAN CORPUSCULAR HGB CONC 33.8 g/dL (32.0-36.0); MEAN CORPUSCULAR VOLUME 91.4 fL (80.0-94.0); MEAN PLATELET VOLUME 10.3 fL (7.4-11.4); MONOCYTES # (AUTO) 0.8 10^3/uL (0.0-1.0); MONOCYTES % (AUTO) 9.3 %; NEUTROPHILS # (AUTO) 3.6 10^3/uL (1.5-6.6); NEUTROPHILS % (AUTO) 43.3 %; PLT - PLATELET COUNT 259 10^3/uL (130-450); RED BLOOD COUNT 5.14 10^6/uL (4.70-6.10); WHITE BLOOD COUNT 8.3 x10^3/uL (4.8-10.8)
--- NOTE | 2022-12-23 21:37 | ED Physician Documentation ---
History of Present Illness - Stated complaint Stated Complaint: LT CHEST PX - Chief complaint Chief Complaint: Cardiac - Additonal information Additional information: Patient 57-year-old male presenting to the emergency department chief complaint chest pain. Past medical significant for hypertension, seasonal allergies. Reports intermittent stabbing chest pain along the left side of his chest x1 day. Currently denies any pain. Denies any shortness of breath associated with this pain. Denies any cardiac history. Denies any recent travel, hospitalizations, periods of immobility or history of blood clots. Review of Systems Constitutional: denies: Fever Eyes: denies: Loss of vision Ears: denies: Loss of hearing Nose: denies: Rhinorrhea / runny nose Throat: denies: Dental pain / toothache Cardiac: reports: Chest pain / pressure Respiratory: denies: Dyspnea, Cough, Hemoptysis GI: denies: Abdominal Pain, Nausea, Vomiting, Constipation, Diarrhea PD PAST MEDICAL HISTORY - Past Medical History Past Medical History: Yes Cardiovascular: Hypertension, Murmur Respiratory: Asthma, Sleep apnea Neuro: None Endocrine/Autoimmune: None GI: GERD : Kidney stones HEENT: Chronic sinusitis Psych: None Musculoskeletal: None Derm: None - Past Surgical History Past Surgical History: Yes General: Cholecystectomy, Colonoscopy HEENT: Tonsil/Adenoidectomy, Other - Present Medications Home Medications: Ambulatory Orders Medication Instructions Recorded Confirmed Losartan [Cozaar] 50 mg PO BID 12/04/13 12/23/22 atenoloL [Tenormin] 50 mg PO BID 12/04/13 12/23/22 amLODIPine [Norvasc] 5 mg PO DAILY 03/22/18 12/23/22 Acetaminophen [Tylenol] 650 mg PO Q6H PRN 04/06/19 12/23/22 Albuterol Sulf [Ventolin Hfa 2 puffs INH Q4HR PRN 04/06/19 12/23/22 Inhaler] Cetirizine [ZyrTEC] 10 mg PO DAILY 04/06/19 12/23/22 Fluticasone Propionate [Flovent 2 inh IH BID 04/06/19 12/23/22 Hfa] Fluticasone [Flonase] 1 sprays SHAHIDA BID 04/06/19 12/23/22 - Allergies Allergies/Adverse Reactions: Allergies Allergy/AdvReac Type Severity Reaction Status Date / Time DANIAL Inhibitors AdvReac cough Verified 12/23/22 21:24 - Social History Does the pt smoke?: No Smoking Status: Never smoker Does the pt drink ETOH?: No Does the pt have substance abuse?: No - Immunizations Immunizations are current?: Yes - POLST Patient has POLST: No PD ED PE NORMAL - Vitals Vital signs reviewed: Yes (Sinus bradycardia) - General General: Alert and oriented X 3, No acute distress, Well developed/nourished - HEENT HEENT: Atraumatic, PERRL, EOMI - Neck Neck: Supple, no meningeal sign, No bony TTP - Cardiac Cardiac: RRR, No gallop - Respiratory Respiratory: No respiratory distress, Clear bilaterally - Abdomen Abdomen: Normal bowel sounds Results - Vitals Vitals: Vital Signs - 24 hr 12/23/22 12/23/22 12/23/22 21:14 21:22 21:36 Temperature 36.9 C Heart Rate 56 L 59 L Respiratory 20 16 Rate Blood Pressure 130/81 H 137/87 H Blood Pressure 130/81 H [Right] O2 Saturation 99 100 12/23/22 12/23/22 12/23/22 22:15 23:02 23:30 Temperature Heart Rate 51 L 50 L 62 Respiratory 14 13 21 Rate Blood Pressure 115/74 119/73 109/75 Blood Pressure [Right] O2 Saturation 98 97 100 Oxygen O2 Source Room air - EKG (time done) 2122 EKG releavant findings:: EKG personally interpreted by author of this note. Relevant findings are: Sinus rhythm with rate 50 bpm. Normal axis. Normal MN, QRS, QTc intervals. No ST segment elevations or T wave inversions. - Labs Labs: Laboratory Tests 12/23/22 12/23/22 12/23/22 21:18 21:18 21:18 WBC 8.3 RBC 5.14 Hgb 15.9 Hct 47.0 MCV 91.4 MCH 30.9 MCHC 33.8 RDW 12.0 Plt Count 259 MPV 10.3 Neut # (Auto) 3.6 Lymph # (Auto) 3.3 Campbell # (Auto) 0.8 Eos # (Auto) 0.5 Baso # (Auto) 0.1 Absolute Nucleated RBC 0.00 Nucleated RBC % 0.0 Sodium 141 Potassium 3.6 Chloride 107 Carbon Dioxide 27 Anion Gap 7.0 BUN 15 Creatinine 0.8 Estimated GFR (MDRD) 99 Glucose 114 H Calcium 9.3 Total Bilirubin 0.5 AST 39 ALT 56 Alkaline Phosphatase 67 Troponin I High Sens 11.5 Total Protein 7.5 Albumin 4.1 Globulin 3.4 Albumin/Globulin Ratio 1.2 Lipase 49 12/24/22 00:10 WBC RBC Hgb Hct MCV MCH MCHC RDW Plt Count MPV Neut # (Auto) Lymph # (Auto) Campbell # (Auto) Eos # (Auto) Baso # (Auto) Absolute Nucleated RBC Nucleated RBC % Sodium Potassium Chloride Carbon Dioxide Anion Gap BUN Creatinine Estimated GFR (MDRD) Glucose Calcium Total Bilirubin AST ALT Alkaline Phosphatase Troponin I High Sens 10.3 Total Protein Albumin Globulin Albumin/Globulin Ratio Lipase PD Medical Decision Making - ED course Complexity details: re-evaluated patient, d/w patient ED course: Patient 57-year-old male presenting to the emergency department with left-sided chest pain. Afebrile, he medically stable and arrival to the emergency department. EKG is on above negative for indications of acute cardiac ischemia or dysrhythmia. Serial troponins negative. Chest x-ray nonacute. Monitored in the emergency department for several hours without persistent or recurrent pain.Will discharge at this time for follow-up with primary care as needed. Clear return precautions given. Departure - Departure Disposition: 01 Home, Self Care Clinical Impression: Chest pain Qualifiers: Chest pain type: unspecified Qualified Code(s): R07.9 - Chest pain, unspecified Instructions: ED Chest Pain Atypical Unkn Cause Comments: Thank you for allowing us to care for you today [facility]. Today in the emergency department your evaluated for any possible life- threatening medical emergency. The testing performed in the emergency department including your EKG, blood work and your chest x-ray were all very reassuring. I do not identify any life- threatening cause of your symptoms at this time however will be very important for you to follow-up with your primary care doctor soon as possible to discuss your ER visit and arrange for further outpatient testing as needed. In the meantime I recommend drinking plenty of fluids and getting plenty of rest. If it anytime you develop any new or worsening symptoms please not hesitate to return.
[2022-12-23 21:51] LABS: ALBUMIN 4.1 g/dL (3.2-5.5); ALBUMIN/GLOBULIN RATIO 1.2 (1.0-2.2); BILIRUBIN,TOTAL 0.5 mg/dL (0.2-1.0); CALCIUM 9.3 mg/dL (8.5-10.3); CREATININE 0.8 mg/dL (0.6-1.2); POTASSIUM 3.6 mmol/L (3.5-5.0); TOTAL PROTEIN 7.5 g/dL (6.7-8.2)
--- NOTE | 2022-12-23 22:09 | XRAY Report ---
PROCEDURE: Chest 1 View X-Ray INDICATIONS: Chest pain TECHNIQUE: One view of the chest was acquired. COMPARISON: 02/12/2019. FINDINGS: Surgical changes and devices: None. Lungs and pleura: No pleural effusions or pneumothorax. Lungs are clear. Mediastinum: Mediastinal contours appear normal. Heart size is normal. Bones and chest wall: No suspicious bony lesions. Overlying soft tissues appear unremarkable. IMPRESSION: 1. No acute cardiopulmonary disease. Reviewed by: Damien Schwartz MD on 12/23/2022 10:08 PM PDT Approved by: Damien Schwartz MD on 12/23/2022 10:08 PM PDT Station ID: [id number]
[2022-12-24 00:57] VITALS: BP 119/83
== END 2022-12-24 00:57 | disposition home or self-care (01) ==
LOC: ED 20:58
DX: R07.9 Chest pain, unspecified (principal); I10 Essential (primary) hypertension
CPT/HCPCS: 36415; 80053; 83690; 84484; 85025; 93005; 99283; 99284

== ENCOUNTER 2023-01-19 09:09 | Outpatient (CLI) | payer BC ==
--- NOTE | 2023-01-19 09:45 | CARDIAC PROCEDURE NOTE ---
Stress Test Report Service Date: 01/19/23 Service Time: 09:30 Ordering Provider: [place] ARNP Indication for Test: Assess for ischemic contribution to chest discomfort that prompted recent Emergency Department evaluation, in patient with intermediate risk factor profile and who is under review for definitive treatment of thyroid cancer. Significant Medical History: Jacob has a long history of hypertension, currently requiring amlodipine, atenolol and losartan for blood pressure control. Sometime around 2017 he experienced a serious left knee injury with reported ACL and MCL tears, for which he has opted not to undergo surgery; this limits his exercise only modestly. He was also found to have thyroid carcinoma and is under evaluation for definitive treatment of this disorder. 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 At home he walks flat on a treadmill at 3-4 mph nearly every day for about 30 minutes and is able to walk in his neighborhood without experiencing undue shortness of breath or chest discomfort. He does have some intermittent dyspepsia, which he describes a a feeling that "food is being pushed up", for which he takes omeprazole approximately every other day. He was seen in the Emergency Department at [facility] on 12/23/2022 with several episodes that day of an intermittent stabbing type of discomfort along the left side of his chest. This was unlike any discomfort he has experienced either previously, or since. EKG at that time did not show ischemia and troponins were negative. Thus he is referred for risk stratification following this Emergency Department evaluation. He has withheld his BID atenolol for the past 24 hours, as instructed. Cardiac Risk Factors: Positive for hypertension on 3 antihypertensive medications, as well as family history of coronary artery disease, with father dying from heart attack at age 58; no known hyperlipidemia (LDL cholesterol was 80 in 2020), history of cigarette smoking ever or diabetes. Type of Stress Test: ETT with Echocardiography Procedure: -Exercise Treadmill Test- After signing informed consent, the patient underwent echo imaging at rest and then performed treadmill exercise using a Jian protocol. The patient exercised for 6 minutes 59 seconds and achieved a peak heart rate of 146 (90 percent p redicted maximum heart rate for age), and an estimated workload of 8.6 METS. The test was terminated due to fatigue/shortness of breath. Resting heart rate: 61 Peak heart rate: 146 Normal response to exercise. Resting BP: 121/76 Peak BP: 214/89 Normal response of systolic BP and abnormal increase in diastolic BP with exercise. Rhythm during exercise: Sinus rhythm throughout. Symptoms: He reported increasing left knee pain and dyspnea (having neglected to use his inhalers for asthma today) but denied experiencing any abdominal or chest discomfort. EKG at rest showed sinus bradycardia at 58 bpm, otherwise fully within normal limits. EKG at peak stress showed no ischemia by EKG criteria. In Recovery heart rate and blood pressure rapidly and normally returned toward baseline levels. Echo imaging, performed at rest and with stress, will be reported separately. IFreddy MD, was present throughout this treadmill stress study and supervised it in its entirety. ] Summary: 1) Exercise tolerance slightly reduced for age as evidenced by MARIANNE of 18%; underlying asthma and knee pain are likely contributing. 2) Normal resting EKG. 3) Adequate level of exercise was achieved on this treadmill stress test. 4) Normal systolic BP response to exercise with abnormal increase in diastolic BP. 5) No ischemic changes by EKG criteria were seen at peak stress. 6) Echo image interpretation reveals normal resting left ventricular size and systolic function, with mild concentric LV hypertrophy, with no significant valvular abnormality or elevation of estimated pulmonary artery systolic pressure. Immediately following peak stress there was appropriate hyperdynamic augmentation of all segments, indicating no evidence of prior infarct or inducible ischemia. See separate report for more details. Conclusions/Recommendations: 1) Reassuring Jian protocol treadmill stress echocardiogram, revealing no symptom, EKG or echo evidence of inducible ischemia. 2) Concentric LV hypertrophy is seen on resting echo, for which patient appears to be on an appropriate 3 drug anti-hypertensive regimen with normal resting systolic blood pressure at presentation.
== END 2023-01-19 09:10 | disposition home or self-care (01) ==
LOC: DI 09:09
PROVIDERS: ATTEND Nurse Practitioner Family
DX: R07.89 Other chest pain (principal); I11.9 Hypertensive heart disease without heart failure; C73 Malignant neoplasm of thyroid gland; Z82.49 Family history of ischemic heart disease and other diseases of the circulatory system; J45.909 Unspecified asthma, uncomplicated
CPT/HCPCS: 93016; 93017; 93018; 93350

== ENCOUNTER 2024-01-31 09:21 | Outpatient (CLI) | payer BC ==
[2024-01-31 12:26] LABS: BASOPHILS # (AUTO) 0.1 10^3/uL (0.0-0.1); BASOPHILS % (AUTO) 0.8 %; EOSINOPHILS # (AUTO) 0.4 10^3/uL (0.0-0.7); EOSINOPHILS % (AUTO) 6.3 %; HCT - HEMATOCRIT 46.4 % (42.0-52.0); HGB - HEMOGLOBIN 15.4 g/dL (14.0-18.0); LYMPHOCYTES # (AUTO) 2.2 10^3/uL (1.5-3.5); LYMPHOCYTES % (AUTO) 36.1 %; MEAN CORPUSCULAR HGB CONC 33.2 g/dL (32.0-36.0); MEAN CORPUSCULAR VOLUME 90.4 fL (80.0-94.0); MONOCYTES # (AUTO) 0.5 10^3/uL (0.0-1.0); MONOCYTES % (AUTO) 7.6 %; NEUTROPHILS % (AUTO) 48.9 %; PLT - PLATELET COUNT 246 10^3/uL (130-450); RED BLOOD COUNT 5.13 10^6/uL (4.70-6.10); RED CELL DISTRIBUTION WIDTH 11.8 % (12.0-15.0); WHITE BLOOD COUNT 6.2 x10^3/uL (4.8-10.8)
[2024-01-31 13:28] LABS: HDL CHOLESTEROL 28 mg/dL
[2024-01-31 13:29] LABS: ALBUMIN 4.6 g/dL (3.2-5.5); ALBUMIN/GLOBULIN RATIO 1.7 (1.0-2.2); ALKALINE PHOSPHATASE 71 IU/L (42-121); ALT ALANINE AMINOTRANSFERASE 29 IU/L (10-60); AST ASPARTATE AMINOTRANSFERASE 22 IU/L (10-42); BILIRUBIN,TOTAL 0.5 mg/dL (0.2-1.0); BUN - BLOOD UREA NITROGEN 20 mg/dL (6-20); CALCIUM 9.6 mg/dL (8.5-10.3); CARBON DIOXIDE - CO2 28 mmol/L (21-32); CHLORIDE 106 mmol/L (101-111); CHOL/HDL RATIO 5.3 (<5.0); CHOLESTEROL 147 mg/dL; CREATININE 0.9 mg/dL (0.6-1.3); GFR - MDRD 86 (>89); GLUCOSE 113 mg/dL (74-104); LDL CHOLESTEROL,CALCULATED 77 mg/dL; LDL/HDL RATIO 2.8 (<3.6); POTASSIUM 3.8 mmol/L (3.5-4.5); SODIUM 140 mmol/L (135-145); TOTAL PROTEIN 7.3 g/dL (6.4-8.9); TRIGLYCERIDES 209 mg/dL (48-352); VLDL CHOLESTEROL 42 mg/dL
[2024-01-31 13:33] LABS: CREATININE,URINE 191.3 mg/dL; MICROALBUM/CREATININE RATIO,UR 9.4 ug/mg (<30.0); MICROALBUMIN,URINE 1.8 mg/dL
[2024-01-31 13:35] LABS: THYROID STIMULATING HORMONE 0.45 uIU/mL (0.34-5.60)
[2024-01-31 13:38] LABS: ESTIMATED AVERAGE GLUCOSE 111 mg/dL (70-100); HEMOGLOBIN A1c% 5.5 % (4.27-6.07)
== END 2024-01-31 09:22 | disposition home or self-care (01) ==
LOC: LAB.N 09:21
PROVIDERS: ATTEND Nurse Practitioner Family
DX: C73 Malignant neoplasm of thyroid gland (principal); R73.03 Prediabetes; E78.1 Pure hyperglyceridemia; K21.9 Gastro-esophageal reflux disease without esophagitis; I10 Essential (primary) hypertension; Z12.5 Encounter for screening for malignant neoplasm of prostate
CPT/HCPCS: 36415; 80053; 80061; 82043; 82570; 83036; 83721; 84153; 84443; 85025

== ENCOUNTER 2024-03-02 09:12 | Outpatient (CLI) | payer BC ==
[2024-03-02] MEDS: ALBUTEROL 1 PUFF INH STA (12:25)
== END 2024-03-02 09:13 | disposition home or self-care (01) ==
LOC: RT 09:12
PROVIDERS: ATTEND Nurse Practitioner Family
DX: J45.909 Unspecified asthma, uncomplicated (principal)
CPT/HCPCS: 94060; 94727; 94729